=== PATIENT | male | born 1975 | race Caucasian/White ===

== ENCOUNTER 2025-07-16 10:02 | Emergency (ER) | payer OTHER, SELFPAY ==
[2025-07-16 10:15] VITALS: BP 128/80; PULSE 64; RESP 18; TEMP 36.9; O2SAT 100
--- NOTE | 2025-07-16 10:32 | ED_ITS ---
HPI - Skin/Abscess/Foreign Bdy General Chief complaint: Skin/Abscess/Foreign Body Stated complaint: ? spider bite Time Seen by Provider: 07/16/25 10:32 Source: patient and RN notes reviewed Mode of arrival: ambulatory Limitations: no limitations History of Present Illness HPI narrative: 50-year-old male presents with concern with a tender area on his left buttock. Reports 2 weeks ago had a rash in that area. Reports since and there has been a raised tender area. He denies drainage. He denies generalized, fever MD complaint: rash Related Data Allergies Allergy/AdvReac Type Severity Reaction Status Date / Time No Known Allergies Allergy Verified 07/16/25 10:20 Review of Systems Review of Systems: CONSTITUTIONAL: Denies malaise, chills, sweats, or fever. SKIN: Reports red raised tender area on his left buttock MUSCULOSKELETAL: Denies joint pain or myalgia. NEUROLOGIC: Denies headache. All systems reviewed & are unremarkable except as noted in HPI and below PMFSH Comments At time of signature, agree with nursing past medical, surgical, social and family history. There is no relevant family history pertinent to the presenting complaint Exam Narrative: GENERAL: Well-appearing, well-nourished, and in no acute distress. HEAD: Normocephalic, atraumatic. EYES: PERRLA, conjunctivae clear, and EOMI. ENT: Mucous membranes moist. Oropharynx without edema, erythema or lesions. NECK: Supple. No lymphadenopathy CHEST: Clear to auscultation. No respiratory distress. HEART: Regular rate and rhythm. SKIN: Warm, dry. Approximately 2.5 cm diameter raised erythematous indurated area without fluctuation noted to the left buttock NEURO: Alert and oriented x3. PSYCH: Normal mood and affect Course Course Emergency Course: Patient is aware of diagnosis, understands and agrees to treatment plan. Anticipatory guidance given. Patient agrees to follow-up as directed and is aware of reasons to seek care at the emergency department. Portions of this record may have been created with voice recognition software Level of Care: Express Care Visit Vital Signs Vital signs: Vital Signs Temperature 98.4 F 07/16/25 10:15 Pulse Rate 64 07/16/25 10:15 Respiratory Rate 18 07/16/25 10:15 Blood Pressure 128/80 07/16/25 10:15 Pulse Oximetry 100 10/27/25 10:15 Oxygen Delivery Room Air 07/16/25 10:15 Temperature 98.4 F 07/16/25 10:15 Pulse Rate 64 07/16/25 10:15 Respiratory Rate 18 07/16/25 10:15 Blood Pressure 128/80 07/16/25 10:15 Pulse Oximetry 100 07/16/25 10:15 Oxygen Delivery Room Air 07/16/25 10:15 Reviewed. MDM - Skin/Abscess/Foreign Bdy MDM Narrative Medical decision making narrative: Does not appear at this time to be erythema multiforme, bullous, SJS, TEN; no evidence at this time to suggest RMSF, endocarditis or Lyme disease; patient looks well, nontoxic and is tolerating oral intake; no neurologic signs or sym ptoms; no headache, photophobia or neck pain; afebrile; appropriate for initial outpatient treatment; discussed the importance of follow-up, patient agrees; question, viral exanthema, contact dermatitis, allergic dermatitis, eczema, urticaria, cellulitis, abscess. No soft palate or uvula edema, no tongue, lip edema or other mucosal involvement, no respiratory compromise, no stridor, no wheezing, no wheezing, no history of syncope, no hypotension, no nausea, vomiting, or diarrhea. Instructed patient to go to nearest ER immediately for any worsening symptoms including but not limited to: fever, spreading rash, pain, sore throat, headache, dizziness, chest pain, trouble breathing, or any symptoms concerning to the patient. Critical Care Time Critical Care Time Critical Care Time: No Discharge Plan Discharge Clinical Impression: Local skin infection Patient Disposition: Home Condition: Stable Instructions: Antibiotic Form, Cellulitis (ED) Additional Instructions: Please follow up with your Primary Care Doctor within 48-72 hours - call for an appointment. Rest and elevate affected area; apply moist heat 3-4 times daily for 10-15 minutes. Take Motrin 600mg every 8 hours with food for pain. Please take Antibiotics as directed. If you experience any worsening redness, swelling, streaking (red lines), fever or chills please go to the ER Patient Language: Macedonian Prescriptions: New sulfamethoxazole-trimethoprim 800-160 mg tablet 1 tablet PO Q12H 7 Days Qty: 14 0RF Follow-up/Referrals: UNKNOWN,DOCTOR [Primary Care Provider] Stand Alone Forms: Work/School Release IP Time of Disposition: 10:39
--- OUTSIDE RECORDS SUMMARY | 2025-07-16 11:16 | XMS_ITS | Clinical Summary ---
Author Organization [facility] Address [address] [place] [address] Phone Care Team Providers Care Skein Dyer Name Role Phone Jean Claude Rai MD Primary Care Provider [phone] Allergies No known active allergies Medications triamcinolone (KENALOG) 0.1 % CreamIndication s:Dermatitis, chemical Apply 1 Applicator 2 times daily. Application Site:Hand rash 454 g 1 2 Active methylPREDNISol one (MEDROL DOSPACK) 4 MG Tablet Therapy Pack Use as per instructions on package. 21 Tablet 2 Active Active Problems Problem Noted Date Diagnosed Date Left arm swelling 03/31/2022 Rash 03/31/2022 Mixed hyperlipidemia 03/31/2022 Peripheral neuropathy 03/16/2022 Social History Tobacco Use Types Packs/Day Years Used Date Smoking Tobacco: Every Day Cigarettes 1.5 27 Smokeless Tobacco: Never Tobacco Cessation:Ready to Q uit: No; Counseling Given: Yes Alcohol Use Standard Drinks/Week Comments Yes 0 (1 standard drink = 0.6 oz pur e alcohol) Seldom Sex and Gender Information Value Date Recorded Sex Assigned at Not on file Legal Sex Male 8:09 PM CDT Gender Identity Not on file Sexual Orientation Not on file Last Filed Vital Signs Vital Sign Reading Time Taken Comments Blood Pressure 122/68 03/31/2022 9:11 AM CDT Pulse 89 03/31/2022 9:11 AM CDT Temperature 36.2 C (97.2 F) 03/31/2022 9:11 AM CDT Respiratory Rate 16 03/31/2022 9:11 AM CDT Oxygen Saturation 98% 03/31/2022 9:11 AM CDT Inhaled Oxygen Concentration - - Weight 100.2 kg (220 lb 14.4 oz) 03/31/2022 9:11 AM CDT Height 180.3 cm (5' 11) 03/31/2022 9: 11 AM CDT Body Mass Index 30.81 03/31/2022 9:11 AM CDT Plan of Treatment Health Maintenance Due Date Last Done Comments Hepatitis C Virus (HCV) Screening 1973 TdaP Immunization 1973 Hepatitis B Immunization (1 of 3 - 19+ 3-dose series) 1992 Cologuard 2018 Colonoscopy 2018 Colorectal Cancer Screening 2018 Immunochemical Fecal Occult Blood 2018 Pneumococcal Immunization (5 0+ years) (1 of 1 - PCV) 2023 Zoster Immunization (1 of 2) 2023 Influenza Immunization (#1) 2025 SARS-COV-2 Immunization (1 - season) 2025 Respiratory Syncytial Virus (RSV) Immunization (Adult) (1 - 1-dose 75+ series) 2048 Human Papillomavirus (HPV) Immunization Aged Out No longer eligible b ased on patient's age to complete this topic Meningococcal Immunization (ACWY) Aged Out No longer eligible based on patient's age to complete this topic Rotavirus Immunization Aged Out No lo nger eligible based on patient's age to complete this topic Insurance [facility] Care Teams Skein Dyer Relationship Specialty Start Date End Date Jean Claude Rai MD [address] [place] [id number] PCP - General Family Medicine 10/04/15
--- OUTSIDE RECORDS SUMMARY | 2025-07-16 11:16 | XMS_ITS | Clinical Summary ---
Author Organization [facility] [address] Address [address] [place] [address] Phone Care Team Providers Care Manufactured Buildings Supervisor Name Role Phone Gurmeet Slater Primary Care Provider [phone] Allergies No known active allergies Medications bismuth subsalicylate (PEPTO-BISMOL) suspension Take 15 mL by mouth every 6 (six) hours as needed for indigestion . Active aspirin-sodium bicarbonate-citric acid (AISHWARYA-SELTZER) 324 mg tablet, effervescentIndica tions:stop 5 days before surgery Take 325 mg by mouth daily as needed. Active hydrOXYzine (ATARAX) 25 mg tablet Take 1 tablet (25 mg total) by mouth every 6 (six) hours as needed for itching. 30 tablet 8 Active oxyCODONE-acetamin ophen (PERCOCET) 5-325 mg per tabletIndications: Pain Take 1 tablet by mouth every 8 (eight) hours as needed for pain. 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 Assessment & Plan (04/28/2018 11:33 AM CDT): Excision in OR under MAC/Local Skin lesion of right leg 04/28/2018 Overview (04/28/2018): Added automatically from request for surgery [id number] Encounters Date Type Department Care Team Description 06/20/2025 Telephone [facility] at [address] [place] [address] Carlita Cobos Prep Instructions from Last 3 Months Immunizations Immunization Administration Dates Next Due Influenza, Unspecified 09/27/2017(Deferred: Neda ent Refused) Surgical History Surgery Date Site/Laterality Comments OTHER SURGICAL HISTORY 09/20/2003 - 09/19/2004 Left left shoulder OTHER SURGICAL HISTORY 09/20/1981 - 09/19/1982 Left fx left arm OTHER SURGICAL HISTORY Right fx right ankle OTHER SURGICAL HISTORY 06/03/2018 Right Excision of Right Thigh Lesion Family History Medical History Relation Name Comments Arthritis Brother Deniz No Known Problems Daughter 1 Hope No Known Problems Daughter 2 Aliyah Arthritis Father Marcello Arthritis Mother Edith Hypertension Mother Edith No Known Problems Sister 1 Linda Multiple sclerosis Sister 2 Rosy No Known Problems Son 1 Jori No Known Problems Son 2 Bernardo Relation Name Status Comments Brother Deniz Alive Daughter 1 Hope Alive Daughter 2 Aliyah Alive Father Marcello Alive Mother Edith Alive Sister 1 Linda Alive Sister 2 Rosy Alive Son 1 Jori Alive Son 2 Bernardo Alive Social History Tobacco Use Types Packs/Day Years Used Date Smoking Tobacco: Every Day Cigarettes Smokeless Tobacco: Never Tobacco Cessation:Ready to Q uit: Yes; Counseling Given: Yes Alcohol Use Standard Drinks/Week Comments Yes 0 (1 standard drink = 0.6 oz pur e alcohol) rarely Sex and Gender Information Value Date Recorded Sex Assigned at Not on file Legal Sex Male 9:30 AM LOOPER OPERATOR Gender Identity Not on file Sexual Orientation Not on file Obstetrics History Last Filed Vital Signs Vital Sign Reading Time Taken Comments Blood Pressure 112/70 08/28/2021 3:57 PM LOOPER OPERATOR Pulse 79 08/28/2021 3:57 PM LOOPER OPERATOR Temperature 36.9 C (98.4 F) 08/28/2021 3:57 PM LOOPER OPERATOR Respiratory Rate 18 06/03/2018 9:08 AM CDT Oxygen Saturation 97% 08/28/2021 3:57 PM LOOPER OPERATOR Inhaled Oxygen Concentration - - Weight 93 kg (205 lb) 08/28/2021 3:57 PM LOOPER OPERATOR Height 180.3 cm (5' 10.98) 08/28/2021 3:57 PM C Body Mass Index 28.6 08/28/2021 3:57 PM LOOPER OPERATOR Plan of Treatment Upcoming Encounters Date Type Department Care Team (Late st Contact Info) Description 08/01/2025 11:30 AM LOOPER OPERATOR Hospital Encounter [address] [id number] Patricia Hannah MD [address] [facility] [address] [place] [address] 08/01/2025 11:30 AM LOOPER OPERATOR - 08/01/2025 12:00 PM LOOPER OPERATOR Surgery [address] [address] Patricia Hannah MD [address] [facility] [address] [place] [address] COLONOSCOPY Scheduled Procedures Name Priority Associated Diagnoses Date/Ti me COLONOSCOPY Screening for colon cancer 08/01/2025 11:30 AM LOOPER OPERATOR Insurance [facility] Address: [place] [address] Care Teams Manufactured Buildings Supervisor Relationship Specialty Start Date End Date Gurmeet Slater PA [address] [place] [address] PCP - General Family Practice 04/28/24
== END 2025-07-16 10:41 | disposition home or self-care (01) ==
PROVIDERS: Emergency Provider Nurse Practitioner
DX: L08.9 Local infection of the skin and subcutaneous tissue, unspecified (principal)
CPT/HCPCS: 99203; G0463